=== PATIENT | male | born 1970 | race Two or more races ===

== ENCOUNTER 2016-11-24 10:06 | Emergency (ER) | payer MEDICAID ==
[~2016-11-24] VITALS: Ht 170.2 cm; Wt 106.6 kg
[~2016-11-24 10:06] MED LIST: ALBUAER3 IN; AZITTAB11 PO; FLUT0.0531; IBUP800T24 PO; PRED-188 PO
[2016-11-24 11:08] VITALS: BP 120/82
== END 2016-11-24 11:28 | disposition home or self-care (01) ==
LOC: ER 10:08
DX: S46.912A Strain of unspecified muscle, fascia and tendon at shoulder and upper arm level, left arm, initial encounter (principal); J45.909 Unspecified asthma, uncomplicated; X58.XXXA Exposure to other specified factors, initial encounter; Y93.89 Activity, other specified; Y99.8 Other external cause status; Y92.89 Other specified places as the place of occurrence of the external cause

== ENCOUNTER 2016-12-06 10:46 | Emergency (ER) | payer MEDICAID ==
[~2016-12-06] VITALS: Ht 170.2 cm; Wt 106.6 kg
[2016-12-06 11:36] VITALS: BP 120/80
== END 2016-12-06 12:22 | disposition home or self-care (01) ==
LOC: ER 10:46
DX: M25.512 Pain in left shoulder (principal); J45.909 Unspecified asthma, uncomplicated
CPT/HCPCS: 73030